=== PATIENT | male | born 1980 | race Caucasian/White ===

== ENCOUNTER → 2017-12-04 | Outpatient (CLI) | payer OTHER | END | disposition home or self-care (01) | LOC: KCIC CT 15:26 | DX: J32.9 Chronic sinusitis, unspecified (principal); J34.2 Deviated nasal septum | CPT/HCPCS: 70486 ==

== ENCOUNTER → 2018-09-06 | Outpatient (CLI) | payer OTHER ==
--- NOTE | 2018-09-06 14:18 | KCIC ---
Maxillofacial CT without comparison for sinusitis, preop planning, history of ear pressure, nasal congestion, sinus pressure, postnasal discharge. TECHNIQUE: Contiguous helical 1 mm axial images are obtained from the skull base to the vertex. Sagittal and coronal reformations are evaluated. FINDINGS: No significant soft tissue abnormalities are identified. Evaluation of the brain parenchyma is limited by acquisition algorithm. A megacisterna magna is noted. Mastoid air cells are clear. The bilateral maxillary, ethmoid, and frontal sinuses are all clear. 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 No significant mucosal thickening of the turbinates. Ostiomeatal complexes are patent. IMPRESSION: 1. No significant abnormalities of the sinuses or turbinates. 2. Incidental note of a megacisterna magna Electronically signed by: Madi Khan MD (09/06/2018 2:16 PM) [id number]
== END | disposition home or self-care (01) ==
LOC: KCIC CT 08:40
PROVIDERS: ATTEND Otolaryngology
DX: J32.9 Chronic sinusitis, unspecified (principal)
CPT/HCPCS: 70486